=== PATIENT | male | born 1950 | race African-American/Black ===

== ENCOUNTER 2020-03-15 19:00 | Outpatient (CLI) | payer BC, MEDICARE | END 2020-03-15 19:01 | disposition home or self-care (01) | LOC: SLEEPLAB 19:00 | PROVIDERS: ATTEND Internal Medicine Pulmonary Disease | DX: G47.33 Obstructive sleep apnea (adult) (pediatric) (principal); R53.83 Other fatigue; E66.9 Obesity, unspecified; R06.83 Snoring; I12.0 Hypertensive chronic kidney disease with stage 5 chronic kidney disease or end stage renal disease; E11.22 Type 2 diabetes mellitus with diabetic chronic kidney disease; N18.6 End stage renal disease; G47.10 Hypersomnia, unspecified; G47.00 Insomnia, unspecified; G47.52 REM sleep behavior disorder | CPT/HCPCS: 95810 ==

== ENCOUNTER 2020-03-31 19:30 | Outpatient (CLI) | payer MEDICARE, BC | END 2020-03-31 19:31 | disposition home or self-care (01) | LOC: SLEEPLAB 19:30 | PROVIDERS: ATTEND Internal Medicine Pulmonary Disease | DX: G47.33 Obstructive sleep apnea (adult) (pediatric) (principal); G47.10 Hypersomnia, unspecified; E66.9 Obesity, unspecified; R06.83 Snoring; E11.9 Type 2 diabetes mellitus without complications; I50.9 Heart failure, unspecified | CPT/HCPCS: 95811 ==

== ENCOUNTER 2021-10-06 08:01 | Outpatient (CLI) | payer BC, MEDICARE | END 2021-10-06 08:02 | disposition home or self-care (01) | LOC: NM 08:01 | PROVIDERS: ATTEND Internal Medicine Gastroenterology | DX: K31.84 Gastroparesis (principal) | CPT/HCPCS: 78264; A9541 ==

== ENCOUNTER 2021-11-20 11:36 | Observation (INO) | payer BC, MEDICARE ==
[2021-11-20 12:53] LABS: Hemoglobin 7.8 g/dL (14.0-18.0); Mean Corpuscular HGB CONC 31.4 g/dL (32.0-36.0); Mean Corpuscular Hemoglobin 29.3 pg (27.0-31.0); Mean Corpuscular Volume 93.2 fL (78.0-98.0); Mean Platelet Volume 7.5 fL (7.4-10.4); Platelet Count 365 thou/uL (130-400); RBC Distribution Width 18.8 % (11.5-14.5); Red Blood Cell (RBC) Count 2.65 mill/uL (4.70-6.10); White Blood Cell (WBC) Count 8.6 thou/uL (4.8-10.8)
[2021-11-20 13:09] LABS: Anisocytosis SLIGHT = 6-15 cells (100X) (0-5/hpf); Band 9 % (5-11); Eosinophils 3 % (0-10); Lymphocytes 21 % (21-51); MDiff Complete? YES; Monocytes 8 % (0-10); Neutrophil 58 % (42-75); Nucleated RBC 2 % (0); Platelet Morphology Comment Appears Adequate; Polychromasia MODERATE = 3-4 cells (100X) (0-2/hpf)
[2021-11-20 13:16] LABS: ALT (SGPT) 8 U/L (8-55); AST (SGOT) 15 U/L (5-34); Alkaline Phosphatase 69 U/L (40-110); Anion Gap 18 mmol/L (10-20); BUN (Urea Nitrogen) 16 mg/dL (8.4-25.7); Bilirubin, Total 0.4 mg/dL (0.2-1.2); Calc. Creatinine Clearance 0 mL/min (70-130); Calcium 9.3 mg/dL (7.8-10.44); Carbon Dioxide 19 mmol/L (23-31); Chloride 103 mmol/L (98-107); Estimated GFR 61; Globulin 6.9 g/dL (2.4-3.5); Glucose 162 mg/dL (83-110); Potassium 4.3 mmol/L (3.5-5.1); Protein, Total 9.9 g/dL (5.8-8.1); Sodium 136 mmol/L (136-145)
[2021-11-20] MEDS ORDERED: HYDROcodone/Acetaminophen 5/325 mg Tablet PO PRN (14:59)
[2021-11-20] MEDS ORDERED: Acetaminophen 325 MG TAB PO PRN (14:59)
[2021-11-20] MEDS ORDERED: Guaifenesin DM 100-10/5 ML UDCUP PO PRN (14:59)
[2021-11-20] MEDS ORDERED: Aspirin Chewable 81 MG TAB ONE (15:41)
[2021-11-20 16:49] VITALS: BMI 26.4
[2021-11-20 17:04] LABS: Troponin I Less than 0.010 ng/mL (< 0.028)
[2021-11-20 18:59] LABS: Troponin I Less than 0.010 ng/mL (< 0.028)
[2021-11-20] MEDS ORDERED: Tamsulosin HCl 0.4 MG CAP PO SCH ×2 (21:00)
[2021-11-20] MEDS ORDERED: Sulfameth/Trimethoprim SS 400-80MG TAB PO SCH (21:00)
[2021-11-20] MEDS ORDERED: Famotidine 20 MG TAB PO SCH (21:00)
[2021-11-20] MEDS ORDERED: Atorvastatin Calcium 20 MG TAB PO SCH (21:00)
[2021-11-20] MEDS ORDERED: cycloSPORINE, Modified 25 MG CAP PO SCH (21:00)
[2021-11-20] MEDS ORDERED: Dextrose 5% in Water 1,000 ML IV PRN (22:54)
[2021-11-20] MEDS ORDERED: Dextrose 50% Abboject 50 ML SYRINGE SLOW IVP PRN (22:54)
[2021-11-20] MEDS ORDERED: HumaLOG 300 UNITS/3 ML VIAL SC PRN ×2 (22:54)
[2021-11-21 05:20] LABS: Anion Gap 14 mmol/L (10-20); BUN (Urea Nitrogen) 15 mg/dL (8.4-25.7); Calc. Creatinine Clearance 70 mL/min (70-130); Carbon Dioxide 23 mmol/L (23-31); Chloride 104 mmol/L (98-107); Estimated GFR 71; Glucose 145 mg/dL (83-110); Sodium 137 mmol/L (136-145)
[2021-11-21 05:46] LABS: Anisocytosis SLIGHT = 6-15 cells (100X) (0-5/hpf); Band 4 % (5-11); Eosinophils 3 % (0-10); Hemoglobin 7.2 g/dL (14.0-18.0); Hypochromia SLIGHT = 6-15 cells (100X) (0-5/hpf); Lymphocytes 18 % (21-51); MDiff Complete? YES; Mean Corpuscular HGB CONC 30.4 g/dL (32.0-36.0); Mean Corpuscular Hemoglobin 28.4 pg (27.0-31.0); Mean Corpuscular Volume 93.3 fL (78.0-98.0); Mean Platelet Volume 7.6 fL (7.4-10.4); Monocytes 13 % (0-10); Neutrophil 62 % (42-75); Platelet Count 347 thou/uL (130-400); Platelet Morphology Comment Appears Adequate; Polychromasia SLIGHT = 2-3 cells (100X) (0-2/hpf); RBC Distribution Width 18.8 % (11.5-14.5); Red Blood Cell (RBC) Count 2.55 mill/uL (4.70-6.10); White Blood Cell (WBC) Count 6.9 thou/uL (4.8-10.8)
[2021-11-21] MEDS ORDERED: Levothyroxine Sodium 112 MCG TAB PO SCH (06:00)
[2021-11-21] MEDS ORDERED: Carvedilol 6.25 MG TAB PO SCH (08:00)
[2021-11-21] MEDS ORDERED: Carvedilol 25 MG TAB PO SCH (09:00)
[2021-11-21] MEDS ORDERED: Aspirin 81 mg Enteric Coated Tablet PO SCH (09:00)
[2021-11-21] MEDS ORDERED: Enoxaparin Sodium 40 MG/0.4 ML SYRINGE SC SCH (09:00)
[2021-11-21] MEDS ORDERED: Loratadine 10 MG TAB PO SCH (09:00)
[2021-11-21] MEDS ORDERED: glipiZIDE 10 MG TAB PO SCH (09:00)
[2021-11-21] MEDS ORDERED: Amlodipine 10 MG TAB PO SCH (09:00)
[2021-11-21] MEDS ORDERED: Eplerenone 25 MG Tablet PO SCH (09:00)
[2021-11-21] MEDS ORDERED: Cholecalciferol 1,000 UNITS (25 MCG) TAB PO SCH (09:00)
[2021-11-21] MEDS ORDERED: Amlodipine 5 MG TAB PO SCH (09:00)
[2021-11-21] MEDS ORDERED: Losartan 25 MG TAB PO SCH (09:00)
[2021-11-21 16:05] VITALS: BP 128/65; TEMP 98
== END 2021-11-21 18:43 | disposition home or self-care (01) ==
LOC: ERS 11:36 → 2SW 15:01
PROVIDERS: ADMIT Internal Medicine; ATTEND Internal Medicine
DX: R07.89 Other chest pain (principal); I25.10 Atherosclerotic heart disease of native coronary artery without angina pectoris; I13.10 Hypertensive heart and chronic kidney disease without heart failure, with stage 1 through stage 4 chronic kidney disease, or unspecified chronic kidney disease; E11.22 Type 2 diabetes mellitus with diabetic chronic kidney disease; N18.9 Chronic kidney disease, unspecified; D63.1 Anemia in chronic kidney disease; K21.9 Gastro-esophageal reflux disease without esophagitis; E78.2 Mixed hyperlipidemia; E03.9 Hypothyroidism, unspecified; I44.1 Atrioventricular block, second degree; I45.10 Unspecified right bundle-branch block; Z85.46 Personal history of malignant neoplasm of prostate; Z79.2 Long term (current) use of antibiotics; Z79.82 Long term (current) use of aspirin; Z79.84 Long term (current) use of oral hypoglycemic drugs; Z79.890 Hormone replacement therapy; Z79.899 Other long term (current) drug therapy; Z88.6 Allergy status to analgesic agent; Z94.0 Kidney transplant status; Z95.1 Presence of aortocoronary bypass graft; Z20.822 Contact with and (suspected) exposure to COVID-19
CPT/HCPCS: 36415; 36416; 71045; 80048; 80053; 83880; 84484; 85025; 85379; 93005; 93010; 96372; G0378; J1650; J1815; U0003; U0005

== ENCOUNTER 2022-09-25 11:19 | Outpatient (CLI) | payer BC, MEDICARE | END 2022-09-25 11:20 | disposition home or self-care (01) | LOC: SCSMRI 11:19 | DX: G57.92 Unspecified mononeuropathy of left lower limb (principal); M48.061 Spinal stenosis, lumbar region without neurogenic claudication | CPT/HCPCS: 72158; 82565 ==

== ENCOUNTER 2024-03-07 13:05 | Outpatient (CLI) | payer BC, MEDICARE ==
[2024-03-07 14:50] LABS: #Basophils 0.03 10x3/uL (0.0-0.2); %Basophils 0.4 % (0.0-1.0); %Eosinophils 1.2 % (0.0-10.0); %Lymphocytes 32.7 % (21.0-51.0); %Monocytes 13.1 % (0.0-10.0); %Neutrophils 52.3 % (42.0-75.0); Hematocrit 35.1 % (42.0-52.0); Hemoglobin 11.3 g/dL (14.0-18.0); Mean Corpuscular HGB CONC 32.2 g/dL (32.0-36.0); Mean Corpuscular Hemoglobin 29.4 pg (27.0-31.0); Mean Corpuscular Volume 91.4 fL (78.0-98.0); Mean Platelet Volume 10.2 fL (7.4-10.4); Platelet Count 341 10x3/uL (130-400); RBC Distribution Width 14.5 % (11.5-14.5); Red Blood Cell (RBC) Count 3.84 mill/uL (4.70-6.10)
[2024-03-07 15:10] LABS: Anion Gap 15 mmol/L (10-20); BUN (Urea Nitrogen) 12 mg/dL (8.4-25.7); Calc. Creatinine Clearance 0 mL/min (70-130); Calcium 9.4 mg/dL (7.8-10.44); Carbon Dioxide 23 mmol/L (23-31); Chloride 104 mmol/L (98-107); Estimated GFR 60; Glucose 160 mg/dL (83-110); Potassium 2.9 mmol/L (3.5-5.1); Sodium 139 mmol/L (136-145)
== END 2024-03-07 13:06 | disposition home or self-care (01) ==
LOC: LABBT 13:05
PROVIDERS: ATTEND Internal Medicine Cardiovascular Disease
DX: Z01.818 Encounter for other preprocedural examination (principal); I25.10 Atherosclerotic heart disease of native coronary artery without angina pectoris
CPT/HCPCS: 80048; 85025; 93005; 93010

== ENCOUNTER 2024-03-14 06:47 | Observation (INO) | payer BC, MEDICARE ==
[2024-03-14] MEDS ORDERED: Nitroglycerin 50 MG/250 ML BOT 0 ML ONE (09:15)
[2024-03-14] MEDS ORDERED: Heparin 10,000 UNITS/ 10 ML VIAL ONE (09:15)
[2024-03-14] MEDS ORDERED: fentaNYL 50 mcg/mL 1 mL Vial ONE ×2 (10:52→11:48)
[2024-03-14] MEDS ORDERED: Midazolam HCl 2 mg/2 ml Vial ONE (10:52)
[2024-03-14] MEDS ORDERED: TICAGRELOR 90 MG TABLET ONE (11:28)
[2024-03-14] MEDS: Potassium Chloride 20 MEQ TAB PO SCH (13:44)
[2024-03-14] MEDS ORDERED: OZEMPIC 0.5 MG SCH (13:45)
[2024-03-14 14:17] VITALS: BP 152/64
[2024-03-14 14:19] VITALS: BMI 27.3
[2024-03-14] MEDS ORDERED: Iopamidol 370 76% 100 ML VIAL ONE (14:23)
[2024-03-14] MEDS: Sodium Chloride 0.9% 1,000 ML IV SCH (14:28)
[2024-03-14] MEDS: Losartan 25 MG TAB PO SCH (15:36)
[2024-03-14] MEDS: Gabapentin 300 MG CAP PO SCH (15:37)
[2024-03-14] MEDS: hydrALAZINE 20 MG/ML VIAL SLOW IVP SCH (15:37)
[2024-03-14] MEDS: Pantoprazole 40 MG DR.TAB PO SCH (21:26)
[2024-03-14] MEDS: Ranolazine ER 500 MG TAB PO SCH (21:26)
[2024-03-14] MEDS: Tamsulosin HCl 0.4 MG CAP PO SCH (21:26)
[2024-03-14] MEDS: Atorvastatin Calcium 20 MG TAB PO SCH (21:26)
[2024-03-14] MEDS: Carvedilol 25 MG TAB PO SCH (21:26)
[2024-03-14] MEDS: Azelastine 137 MCG/NASAL Spray 30 ML NS SCH (21:52)
[2024-03-15] MEDS: Levothyroxine Sodium 112 MCG TAB PO SCH (05:58)
[2024-03-15] MEDS: Fluticasone Propionate Nasal Spray 16 gm Bottle NASAL SCH (08:38)
[2024-03-15] MEDS: Losartan 25 MG TAB PO SCH (08:39)
[2024-03-15] MEDS: Aspirin 81 mg Enteric Coated Tablet PO SCH (08:40)
[2024-03-15] MEDS: Ferrous Sulfate 325 MG TAB PO SCH (08:40)
[2024-03-15] MEDS: Cholecalciferol 1,000 UNITS (25 MCG) TAB PO SCH (08:40)
[2024-03-15] MEDS: Mirabegron ER 25 MG ER.TAB PO SCH (08:41)
[2024-03-15] MEDS: Amlodipine 10 MG TAB PO SCH (08:41)
[2024-03-15] MEDS ORDERED: EPLERENONE 25 MG TAB PO SCH (09:00)
[2024-03-15] MEDS: Clopidogrel Bisulfate 75 MG TAB PO SCH (09:55)
[2024-03-15 12:25] VITALS: TEMP 97.7
[2024-03-16] MEDS ORDERED: Rivaroxaban 10 MG TAB PO SCH (09:00)
[2024-03-16] MEDS ORDERED: Sulfameth/Trimethoprim SS 400-80MG TAB PO SCH (09:00)
[2024-03-16] MEDS ORDERED: cycloSPORINE, Modified 25 MG CAP PO SCH (09:00)
== END 2024-03-15 16:30 | disposition home or self-care (01) ==
LOC: SDC 06:47 → CCU 13:47
PROVIDERS: ADMIT Internal Medicine Cardiovascular Disease; ATTEND Internal Medicine Cardiovascular Disease
PROC: 4A023N7 Measurement of Cardiac Sampling and Pressure, Left Heart, Percutaneous Approach (ICD-10-PCS; principal; 2024-03-15)
DX: I25.10 Atherosclerotic heart disease of native coronary artery without angina pectoris (principal); I10 Essential (primary) hypertension; I35.1 Nonrheumatic aortic (valve) insufficiency; I42.0 Dilated cardiomyopathy; E11.9 Type 2 diabetes mellitus without complications; E03.9 Hypothyroidism, unspecified; E78.5 Hyperlipidemia, unspecified; F32.A Depression, unspecified; F41.9 Anxiety disorder, unspecified; C90.00 Multiple myeloma not having achieved remission; D50.9 Iron deficiency anemia, unspecified; G47.33 Obstructive sleep apnea (adult) (pediatric); N40.0 Benign prostatic hyperplasia without lower urinary tract symptoms; S20.212A Contusion of left front wall of thorax, initial encounter; Z94.0 Kidney transplant status; Z95.1 Presence of aortocoronary bypass graft; Z96.643 Presence of artificial hip joint, bilateral; Z85.46 Personal history of malignant neoplasm of prostate; Z88.6 Allergy status to analgesic agent; Z79.890 Hormone replacement therapy; Z79.82 Long term (current) use of aspirin; Z79.01 Long term (current) use of anticoagulants; Z79.51 Long term (current) use of inhaled steroids; Z79.899 Other long term (current) drug therapy; X58.XXXA Exposure to other specified factors, initial encounter
CPT/HCPCS: 85347; 92928; 93005; 93454; 93455; 99152; 99153; C1769; C1874; C1887; C9600; J0360; J1644; J2250; J3010; J7030; J7520; Q9967